=== PATIENT | female | born 2000 | race Hispanic/Latino ===

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

== ENCOUNTER 2023-02-08 13:29 | Emergency (ER) | payer MEDICAID ==
[~2023-02-08] VITALS: Ht 165.1 cm; Wt 68.0 kg
[2023-02-08] MEDS ORDERED: PENICILLN VK500 MG PO (14:33)
[2023-02-08 14:55] VITALS: BP 117/75
== END 2023-02-08 14:55 | disposition home or self-care (01) ==
LOC: ED 13:29
DX: J02.9 Acute pharyngitis, unspecified (principal); Z20.822 Contact with and (suspected) exposure to COVID-19